=== PATIENT | female | born 1955 | race Caucasian/White ===

== ENCOUNTER → 2017-07-21 08:47 | Outpatient (CLI) | payer BC, SELFPAY ==
--- NOTE | 2017-07-21 08:52 | HPBI_ITS ---
MAMMOGRAPHY - BILATERAL SCREENING REASON FOR EXAM: Female, 61 years old. Routine annual screening examination. PERTINENT HISTORY: Personal history of breast cancer. Prior left mastectomy with the implant. TECHNIQUE: Digital bilateral breast rhina (3D mammographic acquisition) in the CC and MLO projections. 2-D mediolateral oblique (MLO) and craniocaudad (CC) views of both breasts were obtained. CAD: Full Field Digital Mammography with Computer Added Detection was performed. COMPARISON: Comparison is made with prior study dated June 12, 2016 and May 23, 2015. FINDINGS: Breast Composition: There are scattered areas of fibroglandular density. There are no dominant masses or suspicious calcifications. Once again, the patient is status post left mastectomy with the breast implant placement. No other significant abnormalities are identified. There has been no significant change since the prior study. HPBI/SCREENING MAMM (CAD), BILAT IMPRESSION: Stable bilateral screening mammogram. Yearly follow-up mammogram recommended. (A) ASSESSMENT CATEGORY: BIRADS Category 2: Benign. A letter regarding these results will be sent to the patient by the facility within 30 days. Approximately 10% of breast cancers are not detected by mammography. A normal mammogram should not delay biopsy of a clinically suspicious abnormality. [id number] Electronically Signed: Tan Santiago MD at 10:33 EST Tel [phone], Service support ,
== END ==
PROVIDERS: Family Provider Family Medicine; PCP Family Medicine; Visit Provider Nurse Practitioner
DX: Z12.31 Encounter for screening mammogram for malignant neoplasm of breast (principal); C50.412 Malignant neoplasm of upper-outer quadrant of left female breast; Z17.1 Estrogen receptor negative status [ER-]; Z85.3 Personal history of malignant neoplasm of breast
CPT/HCPCS: 77063; 77067

== ENCOUNTER → 2018-02-25 07:42 | Outpatient (CLI) | payer BC, SELFPAY ==
--- NOTE | 2018-02-25 07:45 | ECHOD_ITS ---
Reason For Study: CHF Procedure This was a 2D Doppler, Color Flow transthoracic echocardiogram. Exam performed in department. Left Ventricle Normal size and thickness. The estimated ejection fraction is 50 %. Stage 1 diastolic dysfunction. No regional wall motion abnormalities noted. Right Ventricle Normal size and thickness. A moderator band is seen in the right ventricle. Normal systolic function. Atria Normal left atrium. Normal right atrium. Normal atrial septum. Mitral Valve The mitral valve is structurally normal. No prolapse or stenosis seen. Trivial mitral valve insufficiency. Tricuspid Valve Normal tricuspid valve. Mild (1+) tricuspid valve insufficiency. Right ventricular systolic pressure estimated to be 29 mmHg. Aortic Valve Normal aortic valve. Trisinus/trileaflet aortic valve. Pulmonic Valve The pulmonic valve is not well visualized. Great Vessels Normal aortic root. Normal arch. Normal inferior vena cava. Inferior vena cava collapse with sniff. Pericardium/Pleural No pericardial effusion. Medication 22 gauge I.V. with prn adaptor inserted into right arm. Diluted definity 3ml given slow IV push to enhance endocardial definition. MMode/2D Measurements & Calculations LVIDd: 4.3 cm IVSd: 1.1 cm Ao root diam: 3.2 cm LVIDs: 3.6 cm LVPWd: 0.93 cm LA dimension: 4.5 cm RVDd: 3.2 cm FS: 17.2 % LAV(MOD-bp): 60.4 ml EDV(MOD-sp4): 102.9 ml EDV(MOD-sp2): 122.0 ml LAV(MOD-bp) Indexed: 29.0 ml/m2 ESV(MOD-sp4): 48.4 ml EF(MOD-sp2): 56.5 % LAV(MOD-sp2): 63.1 ml EF(MOD-sp4): 53.0 % LAV(MOD-sp4): 52.6 ml SV(MOD-sp4): 54.5 ml SV(MOD-sp2): 68.9 ml LA A4 area: 18.6 cm2 RA A4 area: 17.2 cm2 Time Measurements MV dec time: 0.18 sec Doppler Measurements & Calculations MV E max greg: 79.0 cm/sec Lat Peak E' Greg: 9.8 cm/sec Med Peak E' Greg: 6.7 cm/sec MV A max greg: 90.3 cm/sec E/E' lat: 8.0 E/E' med: 11.8 MV E/A: 0.87 Ao V2 max: 134.7 cm/sec LV V1 max: 104.0 cm/sec PA V2 max: 99.0 cm/sec Ao max P.3 mmHg LV V1 max P.3 mmHg TR max greg: 233.5 cm/sec TR max P.9 mmHg Interpretation Summary The estimated ejection fraction is 50 %. Stage 1 diastolic dysfunction. Trivial mitral valve insufficiency. Mild (1+) tricuspid valve insufficiency. Right ventricular systolic pressure estimated to be 29 mmHg. Compared to echo report dated 12/11/2016, LV Function has increased from 40 to 50%; RVSP has remained about the same. The study was technically difficult. Contrast injection was performed. Ordering Physician: Braulio Patel Referring Physician: AMY CHICAS Performed By: Lesia Stovall, ARIC, RVT
== END ==
PROVIDERS: Family Provider Family Medicine; PCP Family Medicine; Referring Provider Internal Medicine Cardiovascular Disease; Visit Provider Internal Medicine Cardiovascular Disease
DX: I50.22 Chronic systolic (congestive) heart failure (principal); I42.0 Dilated cardiomyopathy; I50.30 Unspecified diastolic (congestive) heart failure; R94.31 Abnormal electrocardiogram [ECG] [EKG]
CPT/HCPCS: 93306; Q9957; A4216; C8929

== ENCOUNTER → 2018-07-22 07:10 | Outpatient (CLI) | payer BC, SELFPAY ==
--- NOTE | 2018-07-22 07:12 | BI_ITS ---
MAMMOGRAPHY - BILATERAL SCREENING REASON FOR EXAM: Female, 62 years old. Routine annual screening examination. PERTINENT HISTORY: Personal history of breast cancer. Prior left mastectomy and left breast implant placement. TECHNIQUE: Digital bilateral breast rhina (3D mammographic acquisition) in the CC and MLO projections. 2-D mediolateral oblique (MLO) and craniocaudad (CC) views of both breasts were obtained. CAD: Full Field Digital Mammography with Computer Added Detection was performed. COMPARISON: Comparison is made with prior study dated July 21, 2017 and June 12, 1999 FINDINGS: Breast Composition: There are scattered areas of fibroglandular density. There are no dominant masses or suspicious calcifications. Once again, there is evidence of a left mastectomy and breast implant in the left breast. No other significant abnormalities are identified. There has been no significant change since the prior study. BI/SCREENING MAMM (CAD), BILAT IMPRESSION: Stable bilateral screening mammogram. Yearly follow-up mammogram recommended. (A) ASSESSMENT CATEGORY: BIRADS Category 2: Benign. A letter regarding these results will be sent to the patient by the facility within 30 days. Approximately 10% of breast cancers are not detected by mammography. A normal mammogram should not delay biopsy of a clinically suspicious abnormality. [id number] Electronically Signed: Tan Santiago, at 8:34 EST , Service support ,
== END ==
PROVIDERS: Family Provider Family Medicine; PCP Family Medicine; Referring Provider Nurse Practitioner; Visit Provider Nurse Practitioner
DX: Z12.31 Encounter for screening mammogram for malignant neoplasm of breast (principal); C50.412 Malignant neoplasm of upper-outer quadrant of left female breast; Z17.1 Estrogen receptor negative status [ER-]
CPT/HCPCS: 77063; 77067

== ENCOUNTER → 2019-04-02 07:00 | Outpatient (CLI) | payer OTHER, SELFPAY ==
[2019-03-24 15:32] VITALS: BMI 34.2
[2019-04-02 08:42] LABS: AST(SGOT) 19 U/L (15-37); Alanine Aminotransfer ALT/SGPT 16 U/L (13-56); Albumin, Serum 3.4 g/dL (3.2-5.0); Alkaline Phosphatase 107 U/L (45-117); Bilirubin, Direct 0.09 mg/dL (0.00-0.30); Cholesterol 227 mg/dL (200); Globulin 4.2 g/dL (2.2-4.2); High Density Lipoprotein 57 mg/dL; Protein, Total 7.6 g/dL (6.4-8.2); Triglycerides 100 mg/dL; Very Low Density Lipoprotein 20 mg/dL (5-40)
== END ==
PROVIDERS: Family Provider Family Medicine; PCP Family Medicine; Referring Provider Internal Medicine Cardiovascular Disease; Visit Provider Internal Medicine Cardiovascular Disease
DX: E78.00 Pure hypercholesterolemia, unspecified (principal)
CPT/HCPCS: 36415; 80061; 80076

== ENCOUNTER → 2019-06-14 11:45 | Outpatient (CLI) | payer OTHER, SELFPAY ==
[2019-03-24 15:32] VITALS: BMI 34.2
--- NOTE | 2019-06-14 11:48 | RAD_ITS ---
HISTORY: left shoulder pain, getting worsehx of breast ca ADDITIONAL HISTORY: None provided. TECHNIQUE: Left shoulder 4 views Number of images including paperwork: 4 COMPARISON: None FINDINGS: BONES: No acute fracture. Bone island noted in the glenoid, similar to previous chest x-ray 12/10/2016. JOINTS: No subluxation. SOFT TISSUES: No distinct foreign body. RAD/Shoulder min 2 Views IMPRESSION: No acute osseous abnormality. at 0216 Reported and signed by: Meena Yeh MD Electronically Signed: Meena Yeh MD at 2:16 EST Tel , Service support ,
== END ==
PROVIDERS: PCP Family Medicine; Referring Provider Family Medicine; Visit Provider Family Medicine
DX: M25.512 Pain in left shoulder (principal)
CPT/HCPCS: 73030

== ENCOUNTER → 2019-07-25 06:48 | Outpatient (CLI) | payer OTHER, SELFPAY ==
[2019-03-24 15:32] VITALS: BMI 34.2
--- NOTE | 2019-07-25 06:51 | BI_ITS ---
MAMMOGRAPHY - BILATERAL SCREENING REASON FOR EXAM: Female, 63 years old. Routine annual screening examination. PERTINENT HISTORY: Personal history of breast cancer. Prior left mastectomy with the left breast implant. Status post right breast reduction and lift. TECHNIQUE: Digital bilateral breast danette (3D mammographic acquisition) in the CC and MLO projections. 2-D mediolateral oblique (MLO) and craniocaudad (CC) views of both breasts were obtained. CAD: Full Field Digital Mammography with Computer Added Detection was performed. COMPARISON: Comparison is made with prior study dated March 21, 2019 and July 21, 2017. FINDINGS: Breast Composition: There are scattered areas of fibroglandular density. There are no dominant masses or suspicious calcifications. Stable appearance of the left breast implant. Surgical clips are seen in the left axillary region. No other significant abnormalities are identified. There has been no significant change since the prior study. BI/SCREEN MAMM (CAD) W/DANETTE BILAT IMPRESSION: Stable bilateral screening mammogram. Yearly follow-up mammogram recommended. (A) ASSESSMENT CATEGORY: BIRADS Category 2: Benign. A letter regarding these results will be sent to the patient by the facility within 30 days. Approximately 10% of breast cancers are not detected by mammography. A normal mammogram should not delay biopsy of a clinically suspicious abnormality. [id number] Electronically Signed: Tan Santiago, at 9:20 EST , Service support ,
== END ==
PROVIDERS: Family Provider Family Medicine; PCP Family Medicine; Referring Provider Family Medicine; Visit Provider Family Medicine
DX: Z12.31 Encounter for screening mammogram for malignant neoplasm of breast (principal); Z85.3 Personal history of malignant neoplasm of breast; Z90.12 Acquired absence of left breast and nipple
CPT/HCPCS: 77063; 77067

== ENCOUNTER 2019-07-25 16:30 | Outpatient (RCR) | payer OTHER, SELFPAY ==
[2019-03-24 15:32] VITALS: BMI 34.2
--- NOTE | 2019-06-29 17:04 | HP.PTEVAL ---
Patient's Visit Information KEVIN BAKER is a 63 year old F referred to Physical Therapy by Dr. Sharon Willis MD with a diagnosis of L shoulder strain. Date of Evaluation: 06/29/19 Physical Therapist: JOSE MANUEL Diaz - Visit Plan Frequency: 2x /Week Duration: 6 Weeks Plan: 2X/ week for 6 weeks for L shoulder AAROM, AROM, stretching, strengthening of RC and scapula, postural exercises with HEP - Subjective Findings: Pt reports that she has had pain in her shoulder since before and she had gotten a new elliptical... slowed down on it and it was ok till May. She had masectomy on the L side and that was the side that had the pain. X-ray showed no scar tissue. The pain sometimes aches, hutson all the time. She can use the shoulder but it is painful. Pain up in mid trap area and then the neck pain. No pain below the elbow. She has achiness at rest. She points to anterior shoulder pain currently with no up into neck pain. SHe can not lay on her L side very well. If rolls on L side at night it would wake her up. 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 Elliptical has arms that move. She has stopped getting on the elliptical. No N&T. - Pain L shoulder pain Pain Intensity (Out of 10): 5 - Objective L shoulder AROM: abd 165 degrees, ER 40 degrees, IR t8. R shoulder AROM: abd 170 degrees, ER 50 degrees, IR T 8. L shoulder MMT: flexion 4-/5, abd 4-/5, ER 3+/5, IR 4/5. R shoulder MMT: flexion 4/5m abd 4-/5, ER 4-/5, IR 4/5. Bicep 1+ R 1+ L. C-spine AROM: flexion 100%, ext 75%, SB B 75%m ROt B 100%. 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 Posture: sits with slightly rounder shoulders and PPT - Goals Goal 1:: I HEP Goal Time Frame: 4-6 Weeks Goal 2:: Increase L shoulder AROM to full ROM without pain Goal Time Frame: 4-6 Weeks Goal 3:: Increase L shoulder strength by 1/2 muscle grade ( at time of eval: L shoulder MMT: flexion 4-/5, abd 4-/5, ER 3+/5, IR 4/5) Goal Time Frame: 4-6 Weeks Goal 4:: Decrease pain to 1/10 with ADL's and using her L UE Goal Time Frame: 4-6 Weeks - Rehabilitation Potential Rehabilitation Potential: Good - Anticipated Interventions Patient/Client Instruction: Educate patient on: Condition, Plan of Care For the Purpose of:: To decrease pain, To decrease swelling/inflammation, To increase ROM, To improve nutrient delivery to tissue, To improve muscle performance and motor function, To improve ability to perform ADL's, To increase tolerance to activity/condition/position, To improve performance and independence with ADL's, To decrease level of supervision to perform tasks, To improve ability of physical actions for home/community/work/leisure, To improve health of tissue, To increase flexibility/ROM Therapeutic Exercise to Include: Strength training, Postural training, Passive ROM, Active ROM, Scapular Strength/Stabilization For the Purpose of:: To decrease pain, To decrease swelling/inflammation, To increase ROM, To improve nutrient delivery to tissue, To improve muscle performance and motor function, To improve ability to perform ADL's, To increase tolerance to activity/condition/position, To improve performance and independence with ADL's, To improve health of tissue, To decrease soft tissue restriction, To increase flexibility/ROM Manual Therapy Techniques to Include: Passive ROM, Soft tissue mobilization For the Purpose of:: To improve health of tissue, To decrease soft tissue restriction, To increase flexibility/ROM Thank you for the opportunity to evaluate your patient. For Medicare and Medicare HMO plans, please review the plan of care and approve it. It will need to be FAXED BACK to us at [phone] for Medicare purposes. For Medicare only, by signing this I certify the plan of care. Please let me know if there are questions or concerns regarding this plan of care. Physician Signature: Date:
--- NOTE | 2019-10-27 12:12 | HP.PT.NRP ---
KEVIN BAKER was seen in my office for initial evaluation on 06/29/19. The following Plan of Care was established for this patient: Initial Frequency: 2x /Week Initial Duration: 6 Weeks Patient/Client Instruction: Educate patient on: Condition, Plan of Care For the Purpose of:: To decrease pain, To decrease swelling/inflammation, To increase ROM, To improve nutrient delivery to tissue, To improve muscle performance and motor function, To improve ability to perform ADL's, To increase tolerance to activity/condition/position, To improve performance and independence with ADL's, To decrease level of supervision to perform tasks, To improve ability of physical actions for home/community/work/leisure, To improve health of tissue, To increase flexibility/ROM Therapeutic Exercise to Include: Strength training, Postural training, Passive ROM, Active ROM, Scapular Strength/Stabilization For the Purpose of:: To decrease pain, To decrease swelling/inflammation, To increase ROM, To improve nutrient delivery to tissue, To improve muscle performance and motor function, To improve ability to perform ADL's, To increase tolerance to activity/condition/position, To improve performance and independence with ADL's, To improve health of tissue, To decrease soft tissue restriction, To increase flexibility/ROM Manual Therapy Techniques to Include: Passive ROM, Soft tissue mobilization For the Purpose of:: To improve health of tissue, To decrease soft tissue restriction, To increase flexibility/ROM This patient was last seen in our office 07/25/19. Pertinent comments regarding their Physical therapy will appear below: DC PT as pt has not rescheduled an appointment. At this point I will be discontinuing this patient from physical therapy. I would be happy to see this patient again in the future if found appropriate by the physician. Thank you! Debo Iglesias, MPT
== END 2019-07-25 19:00 | disposition home or self-care (01) ==
LOC: PT 16:30
PROVIDERS: PCP Family Medicine; Referring Provider Family Medicine; Visit Provider Family Medicine
DX: S46.912D Strain of unspecified muscle, fascia and tendon at shoulder and upper arm level, left arm, subsequent encounter (principal)
CPT/HCPCS: 97110; 97161; 97164; 97530

== ENCOUNTER → 2019-08-01 11:04 | Outpatient (CLI) | payer OTHER, SELFPAY ==
[2019-03-24 15:32] VITALS: BMI 34.2
[2019-08-01 12:56] LABS: Anion Gap 6 (5-15); BUN 23 mg/dL (7-18); BUN/Creat Ratio 18.1 RATIO (10-20); Calcium,Total 9.4 mg/dL (8.5-10.1); Chloride 104 mmol/L (98-107); Creatinine, Serum 1.27 mg/dL (0.55-1.02); EST Glomerular Filtration Rate 45 mL/min (>60); Est Glom Filt Rate - Afr Amer 55 mL/min (>60); Glucose 91 mg/dL (74-106); Sodium Level 138 mmol/L (136-145)
[2019-08-03 13:20] LABS: HPV Reflexed? NOT INDICATED
== END ==
PROVIDERS: PCP Family Medicine; Referring Provider Family Medicine; Visit Provider Family Medicine
DX: I10 Essential (primary) hypertension (principal); Z12.4 Encounter for screening for malignant neoplasm of cervix
CPT/HCPCS: 36415; 80048; 88175; G0145

== ENCOUNTER → 2020-04-16 14:58 | Outpatient (CLI) | payer BC, SELFPAY ==
[2019-09-27 11:39] VITALS: BMI 34.0
[2020-04-16 18:02] LABS: Anion Gap 5 (5-15); BUN 17 mg/dL (7-18); BUN/Creat Ratio 12.9 RATIO (10-20); Calcium,Total 9.3 mg/dL (8.5-10.1); Chloride 104 mmol/L (98-107); Creatinine, Serum 1.32 mg/dL (0.55-1.02); EST Glomerular Filtration Rate 43 mL/min (>60); Est Glom Filt Rate - Afr Amer 52 mL/min (>60); Glucose 87 mg/dL (74-106); Potassium 3.8 mmol/L (3.5-5.1); Sodium Level 139 mmol/L (136-145)
== END ==
PROVIDERS: PCP Family Medicine; Visit Provider Family Medicine
DX: I10 Essential (primary) hypertension (principal)
CPT/HCPCS: 36415; 80048

== ENCOUNTER → 2020-07-23 | Outpatient (CLI) | payer BC, SELFPAY ==
[2020-04-16 15:58] VITALS: BMI 34.6
== END | disposition home or self-care (01) ==
LOC: LABSPEC 15:59
PROVIDERS: PCP Family Medicine; Referring Provider Internal Medicine Gastroenterology; Visit Provider Internal Medicine Gastroenterology
DX: Z20.822 Contact with and (suspected) exposure to COVID-19 (principal)
CPT/HCPCS: 87635; C9803; U0005; U0003

== ENCOUNTER → 2020-07-27 07:03 | Outpatient (CLI) | payer BC, SELFPAY ==
[2020-04-16 15:58] VITALS: BMI 34.6
--- NOTE | 2020-07-27 07:12 | BI_ITS ---
MAMMOGRAPHY - BILATERAL SCREENING REASON FOR EXAM: Female, 65 years old. Routine annual screening examination. PERTINENT HISTORY: Personal history of breast cancer. Prior left mastectomy with left breast reconstruction. Prior right breast reduction surgery. TECHNIQUE: Digital bilateral breast danette (3D mammographic acquisition) in the CC and MLO projections. 2-D mediolateral oblique (MLO) and craniocaudad (CC) views of both breasts were obtained. CAD: Full Field Digital Mammography with Computer Added Detection was performed. COMPARISON: Comparison is made with prior study 07/25/2019 and 05/21/2019. FINDINGS: Breast Composition: There are scattered areas of fibroglandular density in the right breast. There are no dominant masses or suspicious calcifications. A breast prosthesis is seen in the left breast. Surgical clips are seen in the left axillary region. No other significant abnormalities are identified. There has been no significant change since the prior study. BI/SCRN MAMM (CAD)W/DANETTE BILAT IMPRESSION: Stable bilateral screening mammogram. Yearly follow-up mammogram recommended. (A) ASSESSMENT CATEGORY: BIRADS Category 2: Benign. A letter regarding these results will be sent to the patient by the facility within 30 days. Approximately 10% of breast cancers are not detected by mammography. A normal mammogram should not delay biopsy of a clinically suspicious abnormality. [id number] Electronically Signed: Tan Santiago MD at 8:28 EST , Service support ,
== END ==
PROVIDERS: PCP Family Medicine; Referring Provider Family Medicine; Visit Provider Family Medicine
DX: Z12.31 Encounter for screening mammogram for malignant neoplasm of breast (principal); Z85.3 Personal history of malignant neoplasm of breast; Z90.12 Acquired absence of left breast and nipple
CPT/HCPCS: 77063; 77067

== ENCOUNTER 2020-08-07 09:20 | Outpatient (RCR) | payer BC, SELFPAY ==
[2020-04-16 15:58] VITALS: BMI 34.6
[2020-08-07] MEDS: COVID-19 VACC, MRNA(PFIZER)/PF 30 MCG/0.3 ML SYRINGE IM (16:33)
[2020-08-28] MEDS: COVID-19 VACC, MRNA(PFIZER)/PF 30 MCG/0.3 ML SYRINGE IM (16:17)
== END 2020-08-07 23:59 ==
LOC: IMMUN 09:20
PROVIDERS: PCP Family Medicine; Visit Provider Family Medicine
DX: Z23 Encounter for immunization (principal)
CPT/HCPCS: 0001A; 0002A; 91300

== ENCOUNTER → 2021-02-23 07:20 | Outpatient (CLI) | payer BC, SELFPAY ==
[2021-02-23 08:30] LABS: AST(SGOT) 20 U/L (15-37); Alanine Aminotransfer ALT/SGPT 18 U/L (13-56); Albumin, Serum 3.2 g/dL (3.2-5.0); Alkaline Phosphatase 102 U/L (45-117); Bilirubin, Direct 0.13 mg/dL (0.00-0.30); Cholesterol 249 mg/dL (200); Globulin 4.3 g/dL (2.2-4.2); High Density Lipoprotein 69 mg/dL; Protein, Total 7.5 g/dL (6.4-8.2); Triglycerides 66 mg/dL; Very Low Density Lipoprotein 13 mg/dL (5-40)
== END ==
PROVIDERS: PCP Family Medicine; Referring Provider Nurse Practitioner Family; Visit Provider Nurse Practitioner Family
DX: E78.00 Pure hypercholesterolemia, unspecified (principal)
CPT/HCPCS: 36415; 80061; 80076

== ENCOUNTER → 2021-03-19 14:51 | Outpatient (CLI) | payer BC, SELFPAY ==
--- NOTE | 2021-03-19 14:55 | ECHOCS_ITS ---
Reason For Study: CARDIOMYOPATHY Procedure This was a 2D Doppler, Color Flow transthoracic echocardiogram. The study was technically difficult. Contrast injection was performed. Exam performed in department. Left Ventricle Normal LV size. Left ventricular systolic function is normal. The estimated ejection fraction is 55 %. The global longitudinal strain = -18 % (normal). No evidence for diastolic dysfunction. No regional wall motion abnormalities noted. Right Ventricle Normal RV size. Normal systolic function. Atria The left atrium is mildly enlarged. Normal right atrium. No doppler evidence for ASD. Mitral Valve There is no mitral annular calcification. Normal mitral valve. Mild (1+) mitral valve insufficiency. Tricuspid Valve Normal tricuspid valve. Mild tricuspid valve insufficiency. Right ventricular systolic pressure estimated to be 29 mmHg. Aortic Valve Trisinus/trileaflet aortic valve. Normal aortic valve. Pulmonic Valve The pulmonic valve is not well visualized. Great Vessels Normal sized aortic root. Pericardium/Pleural No pericardial effusion. Medication 22 gauge I.V. with prn adaptor inserted into right arm. Diluted definity 2.0ml given slow IV push to enhance endocardial definition. MMode/2D Measurements & Calculations LVIDd: 4.6 cm IVSd: 0.92 cm Ao root diam: 3.7 cm LVIDs: 3.2 cm LVPWd: 0.93 cm RVDd: 2.8 cm FS: 31.6 % LAV(MOD-bp): 43.9 ml LVAd ap4: 30.6 cm2 LVAd ap2: 29.2 cm2 LAV(MOD-bp) Indexed: 21.0 ml/m2 LVLd ap4: 8.3 cm LVLd ap2: 7.7 cm LAV(MOD-sp2): 45.6 ml EDV(MOD-sp4): 95.0 ml EDV(MOD-sp2): 92.2 ml LAV(MOD-sp4): 41.1 ml EDV(sp4-el): 95.7 ml EDV(sp2-el): 94.4 ml LVAs ap4: 17.5 cm2 LVAs ap2: 16.5 cm2 LVLs ap4: 6.8 cm LVLs ap2: 6.6 cm ESV(MOD-sp4): 38.8 ml ESV(MOD-sp2): 34.9 ml ESV(sp4-el): 38.5 ml ESV(sp2-el): 34.9 ml EF(MOD-sp4): 59.1 % EF(MOD-sp2): 62.1 % EF(sp4-el): 59.8 % SV(MOD-sp4): 56.1 ml SV(MOD-sp2): 57.3 ml SV(sp4-el): 57.3 ml LA A4 area: 16.1 cm2 LA dimension(2D): 4.0 cm RA A4 area: 13.5 cm2 Doppler Measurements & Calculations MV E max greg: 60.5 cm/sec Lat Peak E' Greg: 8.4 cm/sec Med Peak E' Greg: 5.4 cm/sec MV A max greg: 78.6 cm/sec E/E' lat: 7.2 E/E' med: 11.2 MV E/A: 0.77 Ao V2 max: 118.0 cm/sec LV V1 max: 89.8 cm/sec PA V2 max: 92.3 cm/sec Ao max P.6 mmHg LV V1 max P.2 mmHg TR max greg: 253.5 cm/sec TR max P.7 mmHg ECHO/Echo Complete W/ Contrast Interpretation Summary The study was technically difficult. Contrast injection was performed. Left ventricular systolic function is normal. The estimated ejection fraction is 55 %. The global longitudinal strain = -18 % (normal). The left atrium is mildly enlarged. Mild (1+) mitral valve insufficiency. Mild tricuspid valve insufficiency. Right ventricular systolic pressure estimated to be 29 mmHg. No evidence for diastolic dysfunction. Ordering Physician: Elmer Powell Referring Physician: AMY CHICAS Performed By: Lesia Stovall RDCS, RVT
== END ==
PROVIDERS: PCP Family Medicine; Referring Provider Internal Medicine Cardiovascular Disease; Visit Provider Internal Medicine Cardiovascular Disease
DX: I42.0 Dilated cardiomyopathy (principal)
CPT/HCPCS: 93306; Q9957; A4216; C8929; J3490

== ENCOUNTER → 2021-04-02 14:47 | Outpatient (CLI) | payer BC, SELFPAY ==
[2021-04-02 17:57] LABS: Anion Gap 5 (5-15); BUN 19 mg/dL (7-18); BUN/Creat Ratio 15.1 RATIO (10-20); Calcium,Total 9.6 mg/dL (8.5-10.1); Chloride 100 mmol/L (98-107); Creatinine, Serum 1.26 mg/dL (0.55-1.02); EST Glomerular Filtration Rate 45 mL/min (>60); Est Glom Filt Rate - Afr Amer 55 mL/min (>60); Glucose 87 mg/dL (74-106); Potassium 3.7 mmol/L (3.5-5.1); Sodium Level 136 mmol/L (136-145)
[2021-04-02 18:15] LABS: AST(SGOT) 23 U/L (15-37); Alanine Aminotransfer ALT/SGPT 18 U/L (13-56); Albumin, Serum 3.3 g/dL (3.2-5.0); Alkaline Phosphatase 100 U/L (45-117); Bilirubin, Direct 0.13 mg/dL (0.00-0.30); Cholesterol 146 mg/dL (200); Globulin 4.4 g/dL (2.2-4.2); High Density Lipoprotein 62 mg/dL; Protein, Total 7.7 g/dL (6.4-8.2); Triglycerides 62 mg/dL; Very Low Density Lipoprotein 12 mg/dL (5-40)
== END ==
PROVIDERS: Internal Medicine Cardiovascular Disease; PCP Family Medicine; Referring Provider Family Medicine; Visit Provider Family Medicine
DX: E78.00 Pure hypercholesterolemia, unspecified (principal); N39.0 Urinary tract infection, site not specified
CPT/HCPCS: 36415; 80048; 80061; 80076; 87077; 87086; 87088; 87186

== ENCOUNTER 2021-08-07 07:09 | Outpatient (CLI) | payer BC, SELFPAY ==
--- NOTE | 2021-08-07 07:11 | BI_ITS ---
MAMMOGRAPHY - BILATERAL SCREENING 3-D TOMOSYNTHESIS REASON FOR EXAM: Female, 66 years old. SCREENING PERTINENT HISTORY: No significant family history. TECHNIQUE: 2-D mammograms and 3-D Tomosynthesis of the breast (s) were performed. CAD was performed. COMPARISON: 07/27/2020 FINDINGS: The breast composition is heterogeneously dense that can obscure small breast masses. Scattered benign calcifications are seen. No dense spiculated masses or suspicious microcalcifications are identified. No architectural distortion is identified. There is no skin thickening or retraction. Status post left mastectomy with breast implant placement. BI/SCRN MAMM (CAD)W/DANETTE BILAT IMPRESSION: No mammographic signs of malignancy. Routine yearly mammograms recommended. ASSESSMENT CATEGORY: BIRADS Category 2: Benign. A letter regarding these results will be sent to the patient by the facility within 30 days. FOLLOW UP RECOMMENDATION: Yearly follow up mammogram recommended. (A) Approximately 10% of breast cancers are not detected by mammography. A normal mammogram should not delay biopsy of a clinically suspicious abnormality. Electronically Signed: Jefferson Richey MD at 9:11 EDT ,
== END 2021-08-07 23:59 | disposition home or self-care (01) ==
PROVIDERS: PCP Family Medicine; Referring Provider Family Medicine; Visit Provider Family Medicine
DX: Z12.31 Encounter for screening mammogram for malignant neoplasm of breast (principal)
CPT/HCPCS: 77063; 77067

== ENCOUNTER → 2021-10-07 | Outpatient (CLI) | payer BC, SELFPAY ==
--- NOTE | 2021-10-07 15:30 | RAD_ITS ---
STUDY: XR Ankle Min 3 Views REASON FOR EXAM: Female, 66 years old. ANKLE PAIN sprain TECHNIQUE: XR Ankle Min 3 Views LEFT COMPARISON: None. FINDINGS: Normal visualized distal tibia and fibula. Normal medial and lateral malleoli. Normal tibiotalar articulation and ankle mortise. The visualized subtalar, talonavicular, calcaneocuboid and tarsal articulations are normal. There is a plantar calcaneal spur. There is soft tissue swelling around the ankle. RAD/Ankle min 3 Views IMPRESSION: There is soft tissue swelling. Electronically Signed: Agustin Khan MD at 19:23 EDT ,
[2021-10-08 08:19] LABS: Vitamin D,25 Hydroxy 19.5 ng/mL
== END | disposition home or self-care (01) ==
LOC: MTLAB 15:10
PROVIDERS: PCP Family Medicine; Referring Provider Family Medicine; Visit Provider Family Medicine
DX: S93.402A Sprain of unspecified ligament of left ankle, initial encounter (principal); E55.9 Vitamin D deficiency, unspecified
CPT/HCPCS: 36415; 73610; 82306

== ENCOUNTER → 2022-08-11 | Outpatient (CLI) | payer BC, SELFPAY ==
--- NOTE | 2022-08-11 07:08 | BI_ITS ---
MAMMOGRAPHY - BILATERAL SCREENING REASON FOR EXAM: Female, 67 years old. Routine annual screening examination. PERTINENT HISTORY: Personal history of breast cancer. Prior left mastectomy and left breast implant. TECHNIQUE: Digital bilateral breast danette (3D mammographic acquisition) in the CC and MLO projections. 2-D mediolateral oblique (MLO) and craniocaudad (CC) views of both breasts were obtained. CAD: Full Field Digital Mammography with Computer Added Detection was performed. COMPARISON: Comparison is made with prior study dated August 07, 2021 and July 27, 2020. FINDINGS: Breast Composition: There are scattered areas of fibroglandular density. There are no dominant masses or suspicious calcifications. Stable appearance of the left breast implant. Surgical clips are once again seen in the axillary region of the left breast. No other significant abnormalities are identified. There has been no significant change since the prior study. BI/SCRN MAMM (CAD)W/DANETTE BILAT IMPRESSION: Stable bilateral screening mammogram. Yearly follow-up mammogram recommended. (A) ASSESSMENT CATEGORY: BIRADS Category 2: Benign. A letter regarding these results will be sent to the patient by the facility within 30 days. Approximately 10% of breast cancers are not detected by mammography. A normal mammogram should not delay biopsy of a clinically suspicious abnormality. [id number] Electronically Signed: Tan Santiago MD at 8:38 EDT ,
== END | disposition home or self-care (01) ==
LOC: OPBI 07:05
PROVIDERS: PCP Family Medicine; Visit Provider Family Medicine
DX: Z12.31 Encounter for screening mammogram for malignant neoplasm of breast (principal); Z85.3 Personal history of malignant neoplasm of breast; Z90.12 Acquired absence of left breast and nipple
CPT/HCPCS: 77063; 77067

== ENCOUNTER → 2023-04-03 | Outpatient (CLI) | payer BC, SELFPAY ==
[2023-04-03 18:40] LABS: AST(SGOT) 19 U/L (15-37); Alanine Aminotransfer ALT/SGPT 16 U/L (13-56); Anion Gap 6 (5-15); BUN 21 mg/dL (7-18); Calcium,Total 9.7 mg/dL (8.5-10.1); Chloride 103 mmol/L (98-107); Cholesterol 157 mg/dL (200); Creatinine, Serum 1.31 mg/dL (0.55-1.02); EST Glomerular Filtration Rate 43 mL/min (>60); Est Glom Filt Rate - Afr Amer 52 mL/min (>60); Glucose 86 mg/dL (74-106); High Density Lipoprotein 78 mg/dL; Potassium 3.4 mmol/L (3.5-5.1); Sodium Level 140 mmol/L (136-145); Triglycerides 59 mg/dL; Very Low Density Lipoprotein 12 mg/dL (5-40)
== END | disposition home or self-care (01) ==
LOC: MFPLAB 15:51
PROVIDERS: PCP Family Medicine; Visit Provider Family Medicine
DX: E78.00 Pure hypercholesterolemia, unspecified (principal); I10 Essential (primary) hypertension
CPT/HCPCS: 36415; 80048; 80061; 84450; 84460

== ENCOUNTER → 2023-08-14 | Outpatient (CLI) | payer MEDICARE, SELFPAY ==
--- NOTE | 2023-08-14 09:53 | BI_ITS ---
MAMMOGRAPHY - BILATERAL SCREENING REASON FOR EXAM: Female, 68 years old. Routine annual screening examination. PERTINENT HISTORY: Personal history of breast cancer. Prior left mastectomy with the left implant. Right reduction surgery. TECHNIQUE: Digital bilateral breast danette (3D mammographic acquisition) in the CC and MLO projections. 2-D mediolateral oblique (MLO) and craniocaudad (CC) views of both breasts were obtained. CAD: Full Field Digital Mammography with Computer Added Detection was performed. COMPARISON: Comparison is made with prior study of August 11, 2022 and August 07, 2021. FINDINGS: Breast Composition: There are scattered areas of fibroglandular density. There are no dominant masses or suspicious calcifications. Stable appearance of the left breast implant. Surgical clips are once again seen in the axillary region of the left breast. No other significant abnormalities are identified. There has been no significant change since the prior study. BI/SCRN MAMM (CAD)W/DANETTE BILAT IMPRESSION: Stable bilateral screening mammogram. Yearly follow-up mammogram recommended. (A) ASSESSMENT CATEGORY: BIRADS Category 2: Benign. A letter regarding these results will be sent to the patient by the facility within 30 days. Approximately 10% of breast cancers are not detected by mammography. A normal mammogram should not delay biopsy of a clinically suspicious abnormality. [id number] Electronically Signed: Tan Santiago MD at 12:14 EDT ,
== END | disposition home or self-care (01) ==
PROVIDERS: PCP Family Medicine; Referring Provider Family Medicine; Visit Provider Family Medicine
DX: Z12.31 Encounter for screening mammogram for malignant neoplasm of breast (principal); Z90.12 Acquired absence of left breast and nipple; Z85.3 Personal history of malignant neoplasm of breast
CPT/HCPCS: 77063; 77067

== ENCOUNTER → 2024-04-18 | Outpatient (CLI) | payer MEDICARE, SELFPAY ==
[2024-04-18 12:20] LABS: Protein, Urine (Random) 12.7 mg/dL (<11.9); Protein:Creat Ratio 128 mg/g CRE (0-200)
[2024-04-18 12:34] LABS: Vitamin D,25 Hydroxy 77.9 ng/mL
[2024-04-18 13:11] LABS: AST(SGOT) 22 U/L (15-37); Alanine Aminotransfer ALT/SGPT 16 U/L (13-56); Anion Gap 5 (5-15); BUN 31 mg/dL (7-18); BUN/Creat Ratio 22.6 RATIO (10-20); Chloride 103 mmol/L (98-107); Cholesterol 152 mg/dL (200); Creatinine, Serum 1.37 mg/dL (0.55-1.02); EST Glomerular Filtration Rate 41 mL/min (>60); Est Glom Filt Rate - Afr Amer 49 mL/min (>60); Glucose 95 mg/dL (74-106); High Density Lipoprotein 69 mg/dL; Potassium 4.3 mmol/L (3.5-5.1); Sodium Level 137 mmol/L (136-145); Triglycerides 61 mg/dL; Very Low Density Lipoprotein 12 mg/dL (5-40)
== END | disposition home or self-care (01) ==
PROVIDERS: PCP Family Medicine; Referring Provider Family Medicine; Visit Provider Family Medicine
DX: I10 Essential (primary) hypertension (principal); E78.00 Pure hypercholesterolemia, unspecified; E55.9 Vitamin D deficiency, unspecified
CPT/HCPCS: 36415; 80048; 80061; 82306; 82570; 84156; 84443; 84450; 84460

== ENCOUNTER → 2024-05-16 | Outpatient (CLI) | payer MEDICARE, SELFPAY ==
[2024-05-16 12:19] LABS: Anion Gap 4 (5-15); BUN 27 mg/dL (7-18); BUN/Creat Ratio 20.8 RATIO (10-20); Calcium,Total 9.2 mg/dL (8.5-10.1); Chloride 106 mmol/L (98-107); EST Glomerular Filtration Rate 43 mL/min (>60); Est Glom Filt Rate - Afr Amer 52 mL/min (>60); Glucose 95 mg/dL (74-106); Potassium 3.9 mmol/L (3.5-5.1); Sodium Level 139 mmol/L (136-145)
== END | disposition home or self-care (01) ==
LOC: MFPLAB 09:53
PROVIDERS: PCP Family Medicine; Referring Provider Family Medicine; Visit Provider Family Medicine
DX: I10 Essential (primary) hypertension (principal)
CPT/HCPCS: 36415; 80048

== ENCOUNTER → 2024-08-15 | Outpatient (CLI) | payer MEDICARE, SELFPAY ==
--- NOTE | 2024-08-15 13:44 | BI_ITS ---
EXAM: PROCEDURE: MA Mammogram Digital Screen CLINICAL HISTORY: Screening. History of the left breast cancer which was diagnosed in 2008. She had a left mastectomy with an implant placed. She has had right breast reduction. COMPARISON: Mammogram studies dated 08/14/2023 and 08/11/2022 TECHNIQUE: A bilateral screening mammogram was obtained with MLO and CC views of both breasts with digital breast tomosynthesis. BREAST CANCER RISK ASSESSMENT: Does not appear to have been calculated. FINDINGS: A stable 3 mm density in the lateral middle 3rd aspect of the right breast is noted. Benign round microcalcifications are seen. Stable focal asymmetric density in the superior outer far posterior aspect is noted and appears to represent residual fibroglandular tissue. No suspicious masses or suspicious calcifications are seen in the right breast. The left postmastectomy reconstructed breast implant appears to be intact. There is calcification of the implant wall. A benign macrocalcification is seen in the breast. Surgical clips are seen in the axillary region. There is no mammographic abnormality seen to suggest new or recurrent malignancy. CONCLUSION: Right Breast: BI-RADS category 2, benign findings Left Breast: BI-RADS category 2, benign findings Breast Composition: There are scattered areas of fibroglandular density. Recommendation: Annual screening mammography Reading Location: [id number]
== END | disposition home or self-care (01) ==
LOC: OPBI 13:42
PROVIDERS: PCP Family Medicine; Referring Provider Family Medicine; Visit Provider Family Medicine
DX: Z12.31 Encounter for screening mammogram for malignant neoplasm of breast (principal)
CPT/HCPCS: 77063; 77067

== ENCOUNTER → 2024-08-30 | Outpatient (CLI) | payer MEDICARE, SELFPAY ==
--- NOTE | 2024-08-30 07:50 | ECHOCS_ITS ---
Reason For Study Reason For Study: Fatigue, Hx CHF Procedure This was a 2D Doppler, Color Flow transthoracic echocardiogram. Myocardial strain analysis was performed in this exam to aid in the assessment of cardiac function. Contrast injection was performed. Exam performed in department. Left Ventricle Normal LV size. The global longitudinal strain = -19.1 % (normal). The left ventricular ejection fraction is 60 %. No regional wall motion abnormalities noted. Right Ventricle Normal RV size. Normal systolic function. Atria Normal left atrium. Normal right atrium. Mitral Valve Normal mitral valve. Tricuspid Valve Normal tricuspid valve. Aortic Valve Trisinus/trileaflet aortic valve. Pulmonic Valve Normal pulmonic valve. Great Vessels Normal sized aortic root. The pulmonary artery is normal size. Inferior vena cava collapse with respiration. Pericardium/Pleural No pericardial effusion. Medication 22 gauge I.V. with prn adaptor inserted into right arm. Diluted definity 1.5ml given slow IV push to enhance endocardial definition. MMode/2D Measurements & Calculations LVIDd: 4.2 cm IVSd: 1.3 cm Ao root diam: 3.3 cm LVIDs: 3.1 cm LVPWd: 0.96 cm RVDd: 3.3 cm FS: 27.7 % LAV(MOD-bp): 48.7 ml LVAd ap4: 32.6 cm2 SV(MOD-sp4): 58.9 ml LAV(MOD-bp) Indexed: 22.9 ml/m2 LVLd ap4: 8.0 cm SI(MOD-sp4): 27.7 ml/m2 LAV(MOD-sp2): 43.5 ml EDV(MOD-sp4): 107.8 ml LAV(MOD-sp4): 48.9 ml EDV(sp4-el): 112.4 ml LVAs ap4: 19.9 cm2 LVLs ap4: 6.6 cm ESV(MOD-sp4): 48.9 ml ESV(sp4-el): 51.1 ml EF(MOD-sp4): 54.6 % EF(sp4-el): 54.6 % SV(sp4-el): 61.3 ml LA A4 area: 18.4 cm2 LA dimension(2D): 4.2 cm RA A4 area: 14.8 cm2 TAPSE: 2.1 cm Time Measurements MV dec time: 0.18 sec Doppler Measurements & Calculations MV E max greg: 74.3 cm/sec Lat Peak E' Greg: 12.4 cm/sec Med Peak E' Greg: 7.7 cm/sec MV A max greg: 80.8 cm/sec E/E' lat: 6.0 E/E' med: 9.6 MV E/A: 0.92 MV V2 max: 106.8 cm/sec MV P1/2t max greg: 94.1 cm/sec Ao V2 max: 117.0 cm/sec MV max P.6 mmHg MV P1/2t: 69.4 msec Ao max P.5 mmHg MV V2 mean: 60.2 cm/sec MV dec slope: 397.4 cm/sec2 Ao V2 mean: 80.1 cm/sec MV mean P.7 mmHg MVA(P1/2t): 3.2 cm2 Ao mean P.9 mmHg MV V2 VTI: 25.7 cm Ao V2 VTI: 30.3 cm AV (velocity ratio): 0.74 LV V1 max: 91.5 cm/sec PA V2 max: 86.0 cm/sec TR max greg: 263.0 cm/sec LV V1 max P.4 mmHg PA V2 mean: 63.2 cm/sec TR max P.7 mmHg LV V1 mean P.9 mmHg LV V1 mean: 65.2 cm/sec LV V1 VTI: 22.5 cm ECHO/Echo Complete W/ Contrast Interpretation Summary Normal LV size. No regional wall motion abnormalities noted. The global longitudinal strain = -19.1 % (normal). The left ventricular ejection fraction is 60 %. Contrast injection was performed. Ordering Physician: Ryley Momin Referring Physician: Sharon Willis M.D. Performed By: Duc Stubbs RCS
== END | disposition home or self-care (01) ==
LOC: CVS 07:50
PROVIDERS: PCP Family Medicine; Referring Provider Student in an Organized Health Care Education/Training Program; Visit Provider Student in an Organized Health Care Education/Training Program
DX: I42.0 Dilated cardiomyopathy (principal)
CPT/HCPCS: 93306; Q9957; A4216; C8929

== ENCOUNTER → 2025-04-14 | Outpatient (CLI) | payer MEDICARE, SELFPAY ==
[2025-04-14 10:41] LABS: Hematocrit 37.3 % (37-47); Hemoglobin 12.0 g/dL (12.0-15.0); Mean Corp Hgb Conc 32.2 g/dL (32-36); Mean Corpuscular Volume 89.4 fL (81-99); Mean Platelet Vol. 10.9 fl (6.2-12.0); Platelet Count 203 K/mm3 (150-450); RBC Distribution Width CV 13.9 % (11.6-14.6); RBC Distribution Width SD 45.4 fl (35.1-43.9); Red Blood Count 4.17 M/mm3 (4.2-5.4); White Blood Count 3.9 K/mm3 (4.4-11.0)
[2025-04-14 10:56] LABS: AST(SGOT) 27 U/L (<=31); Alanine Aminotransfer ALT/SGPT 21 U/L (<=34); Albumin, Serum 3.9 g/dL (3.4-4.8); Alkaline Phosphatase 110 U/L (35-104); Anion Gap 10 (5-15); BUN 26 mg/dL (4-19); BUN/Creat Ratio 19.5 RATIO (10-20); CPK Total, Creatine Kinase 66 U/L (24-195); Calcium,Total 9.7 mg/dL (7.6-11.0); Carbon Dioxide 27.4 mmol/L (21.0-32.0); Chloride 104 mmol/L (98-108); Cholesterol 172 mg/dL (<=200); Ferritin 89 ng/mL (22-378); Globulin 3.4 g/dL (2.2-4.2); Glucose 96 mg/dL (70-99); Low Density Lipoprotein Calc. 95 mg/dL; Potassium 3.9 mmol/L (3.3-5.1); Triglycerides 72 mg/dL; Very Low Density Lipoprotein 14 mg/dL (5-40); cholesterol:hdl ratio screen 2.70
[2025-04-14 11:03] LABS: CRP 3.13 mg/L (0.0-3.0); Magnesium 2.2 mg/dL (1.5-2.2); Uric Acid 6.9 mg/dL (2.6-6.0)
[2025-04-14 11:19] LABS: Iron 46 ug/dL (50-170)
[2025-04-17 16:09] LABS: PROEL- A/G Ratio 1.1 (0.7-1.7); PROEL- Albumin 3.5 g/dL (2.9-4.4); PROEL- Alpha-1 Globulin 0.3 g/dL (0.0-0.4); PROEL- Alpha-2 Globulin 0.8 g/dL (0.4-1.0); PROEL- Beta Globulin 1.2 g/dL (0.7-1.3); PROEL- Gamma Globulin 1.1 g/dL (0.4-1.8); PROEL- Globulin, Total 3.3 g/dL (2.2-3.9); PROEL- TOTAL PROTEIN 6.8 g/dL (6.0-8.5); PROEL-M-Spike Not Observed g/dL (Not Observed)
== END | disposition home or self-care (01) ==
LOC: MTLAB 07:59
PROVIDERS: PCP Family Medicine; Referring Provider Family Medicine; Visit Provider Family Medicine
DX: M79.606 Pain in leg, unspecified (principal); N18.30 Chronic kidney disease, stage 3 unspecified; G62.9 Polyneuropathy, unspecified; E78.00 Pure hypercholesterolemia, unspecified
CPT/HCPCS: 36415; 80053; 80061; 82085; 82550; 82728; 83540; 83735; 84165; 84443; 84550; 85027; 85652; 86140

== ENCOUNTER → 2025-04-25 | Outpatient (CLI) | payer MEDICARE, SELFPAY ==
--- NOTE | 2025-04-25 11:29 | RAD_ITS ---
PROCEDURE: L/S SPINE W BEND MIN 6 VW 04/25/2025 REASON FOR EXAM: BILATERAL LEG PAIN, ? CLAUDICATION TECHNIQUE: Procedure Code: [id number] Modality: DX Procedure: L/S SPINE W BEND MIN 6 VW COMPARISON: None FINDINGS: Lumbar spine 6 views. Vertebral body height is maintained. There is levocurvature of the lumbar region with less than 10 degrees of variance, which can indicate spasm. There is grade 1 spondylolisthesis at L5-S1, 0.6 cm. There is loss of disc height which is most severe at L5-S1. Osteopenia is noted. There is no visible atherosclerosis. RAD/L/S Spine w Bend Min 6 Vw IMPRESSION: There is levocurvature of the lumbar region with less than 10 degrees of varian ce, which can indicate spasm. There is grade 1 spondylolisthesis at L5-S1, 0.6 cm. There is loss of disc height which is most severe at L5-S1. Reading Location: [facility]
== END | disposition home or self-care (01) ==
LOC: MTRAD 11:29
PROVIDERS: PCP Family Medicine; Referring Provider Family Medicine; Visit Provider Family Medicine
DX: M79.604 Pain in right leg (principal); M79.605 Pain in left leg
CPT/HCPCS: 72114

== ENCOUNTER → 2025-05-11 | Outpatient (CLI) | payer MEDICARE, SELFPAY ==
--- NOTE | 2025-05-11 09:20 | BD_ITS ---
PROCEDURE: DEXA BONE DENSITY STUDY 05/11/2025 REASON FOR EXAM: F, age 69 y/o . Postmenopausal. TECHNIQUE: Procedure Code: [id number] Modality: DX Procedure: DEXA BONE DENSITY STUDY COMPARISON: None FINDINGS: BMD and T-SCORES Lumbar spine: 0.756 g/cm2, T-score -2.6 Levels: L1 through L4 Left femoral neck: 0.641 g/cm2, T-score -1.9 Femoral neck comparison data not recommended for monitoring change. Left total hip: 0.727 g/cm2, T-score -1.8 Right femoral neck: 0.614 g/cm2, T-score -2.1 Femoral neck comparison data not recommended for monitoring change. Right total hip: 0.761 g/cm2, T-score -1.5 The World Health Organization has defined the following categories based on bone density: Normal bone density: T-score equal to or greater than -1.0 Osteopenia: T-score between -1.0 and -2.5 Osteoporosis: T-score equal to or less than -2.5 FRAX (or Comparable) Fracture Risk Assessment: 10 Year Probability of Fracture: Major Osteoporotic Fracture: 11% Hip Fracture: 1.8% (Note: FRAX is not to be reported in setting of normal range bone density, osteoporosis on DEXA, known history of osteoporosis, prior osteoporotic hip or vertebral fracture, or for any patient undergoing pharmacological treatment for bone loss.) The National Osteoporosis Foundation (NOF) recommends pharmacological treatment for patients with a FRAX 10-year risk of 3% or higher for a hip fracture, or 20% or higher for a major osteoporotic fracture, to prevent osteoporosis and reduce fracture risk. The patient does meet the pharmacological treatment recommendations for prevention of osteoporosis. BD/Dexa Bone Density Study IMPRESSION: OSTEOPENIA. Recommend follow-up as clinically warranted. Reading Location: [facility]
== END | disposition home or self-care (01) ==
LOC: OPBD 09:19
PROVIDERS: PCP Family Medicine; Referring Provider Family Medicine; Visit Provider Family Medicine
DX: M81.0 Age-related osteoporosis without current pathological fracture (principal)
CPT/HCPCS: 77080